=== PATIENT | female | born 1965 | race Caucasian/White ===

== ENCOUNTER 2023-04-04 14:17 | Emergency (ER) | payer MEDICARE, OTHER, SELFPAY ==
[2023-04-04] VITALS (30 sets, daily range): BP systolic 73–166; BP diastolic 36–81; PULSE 60–127; RESP 13–29; O2SAT 86–98; BMI 28.3
--- NOTE | 2023-04-04 14:20 | ECG_ITS ---
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
--- NOTE | 2023-04-04 14:43 | XR_ITS ---
The [address] [address] Patient Name: FRANCISCA GRECO MRN: [id number] date: 1965 Sex: F Assigned Patient Location: ER Current Patient Location: ER Accession/Order Number: [id number] Exam Date: 04/04/2023 15:10 Report Date: 04/04/2023 16:15 At the request of: TIFFANIE OVERTON Procedure: XR chest 1V EXAMINATION: XR chest 1V, , 04/04/2023 3:10 PM EST INDICATION: cp HISTORY: Ordering Provider Reason for Exam: cp Technologist Note: Additional: COMPARISON: None. TECHNIQUE: Chest x-ray: One view. FINDINGS: No pneumothorax, pleural effusion or focal airspace consolidation. Enlarged cardiac silhouette is seen. Cardiac pacemaker is seen in place. Bony thorax is unremarkable. XR/XR chest 1V IMPRESSION: Enlarged cardiac silhouette is seen. Cardiac pacemaker is seen in place. Electronically authenticated by: SANA BLOOD Date: 04/04/2023 16:15
[2023-04-04 14:53] LABS: PCO2 VBG 32.4 mmHg (40.0-52.0); pH VBG 7.496 (7.330-7.430)
[2023-04-04 14:54] LABS: Basophils Absolute Auto 0.1 10^3/uL (0.0-0.1); Basophils Percent Auto 0.4 % (0.2-2.0); Eosinophils Absolute Auto 0.1 10^3/uL (0.0-0.7); Eosinophils Percent Auto 0.3 % (0.9-7.0); Hematocrit 36.1 % (36.0-48.0); Hemoglobin 12.2 g/dL (12.0-16.0); Immature Granulocytes Pct Auto 0.7 % (0.0-0.5); Lymphocytes Absolute Auto 1.7 10^3/uL (1.2-3.8); Lymphocytes Percent Auto 11.4 % (20.5-60.0); Mean Corpuscular HGB Conc 33.8 g/dL (29.9-35.2); Mean Corpuscular Hemoglobin 30.8 pg (26.7-34.0); Mean Corpuscular Volume 91.2 fL (81.0-99.0); Mean Platelet Volume 11.9 fL (9.5-13.5); Monocytes Absolute Auto 1.1 10^3/uL (0.3-0.8); Monocytes Percent Auto 7.7 % (1.7-12.0); Neutrophils Absolute Auto 11.7 10^3/uL (1.4-6.5); Neutrophils Percent Auto 79.5 % (43.0-75.0); Platelet Count 255 10^3/uL (150-450); Red Blood Count 3.96 10^6/uL (4.20-5.40); Red Cell Distribution Width 16.5 % (11.0-15.0); White Blood Count 14.7 10^3/uL (4.0-11.0)
[2023-04-04] MEDS: 0.9 % SODIUM CHLORIDE 1,000 ML 100 ML IV (15:06)
[2023-04-04 15:18] LABS: Albumin Globulin Ratio 1.3; Albumin Level 3.9 g/dL (3.4-5.0); Alkaline Phosphatase 244 U/L (46-116); Anion Gap 18.6; Aspartate Amino Transferase 249 U/L (15-37); BUN Creatinine Ratio 25.5; Bilirubin Total 4.7 mg/dL (0.2-1.0); Calcium 8.6 mg/dL (8.5-10.1); Carbon Dioxide 23.8 mmol/L (21.0-32.0); Chloride 92 mmol/L (98-107); Estimated GFR (African America >60 (>=60); Estimated GFR (Non-African Ame 51 (>=60); Glucose 130 mg/dL (74-106); Magnesium 1.7 mg/dL (1.8-2.4); Potassium 3.4 mmol/L (3.5-5.1); Sodium 131 mmol/L (136-145); Total Protein 6.9 g/dL (6.4-8.2)
[2023-04-04 15:22] LABS: Alanine Aminotransferase 674 U/L (14-59); Lactate/Lactic Acid 2.8 mmol/L (0.4-2.0); Troponin I High Sensitivity 244.2 pg/mL (4.0-51.3)
--- NOTE | 2023-04-04 15:43 | ED_ITS ---
HPI - General Adult General Chief complaint: Chest Pain Stated complaint: SHORTNESS OF BREATH Time Seen by Provider: 04/04/23 14:42 Source: patient Mode of arrival: ambulance Limitations: no limitations History of Present Illness HPI narrative: Patient is a 57-year-old female who is presenting to the Emergency Room with multiple complaints. Patient is complaining of Fullness to her bilateral upper quadrant, pressure, pain. Patient has a significant medical history. Patient in 1998 had a pacemaker/to [facility]. Patient had a history of cardiomyopathy. Patient was just admitted to [facility] last week and was discharged this past Wednesday on March 28. Patient went home, was still having shortness of breath, was not feeling well Wednesday evening. Patient was sent home from the Emergency Room last Wednesday evening as well, patient said that they told her that she had anxiety and patient was discharged. Patient's been having mild chest tightness throughout the week, she has a history of atrial fibrillation. She has a history of cardiomyopathy. Patient looks jaundiced and has scleral icterus, patient's mother is at bedside. Patient says that she's been having mild jaundice and yellow coloration to skin and eyes throughout the week. Patient has no history of liver failure. Patient has no history of hepatitis B, C, cirrhosis, no liver history. Patient has no history of ascites or abdominal swelling. Patient does have mild swelling to her lower extremities. Patient has no fever or chills. No shortness of breath. No other acute complaints. Patient looks Jaundice, sick, not well and uncomfortable. Related Data Home Medications Medication Instructions Recorded Confirmed apixaban 5 mg tablet (Eliquis) 5 mg PO BID 04/04/23 04/04/23 atorvastatin 80 mg tablet 80 mg PO QPM 04/04/23 04/04/23 cholecalciferol (vitamin D3) 50 50 mcg PO DAILY 04/04/23 04/04/23 mcg (2,000 unit) capsule dofetilide 500 mcg capsule 500 mcg PO BID 04/04/23 04/04/23 lisinopril 5 mg tablet 5 mg PO DAILY 04/04/23 04/04/23 metoprolol succinate 25 mg 25 mg PO DAILY 04/04/23 04/04/23 tablet,extended release 24 hr omeprazole 40 mg capsule,delayed 40 mg PO DAILY 11/26/23 11/26/23 release spironolactone 25 mg tablet 12.5 mg PO DAILY 04/04/23 04/04/23 Allergies Allergy/AdvReac Type Severity Reaction Status Date / Time No Known Drug Allergies Allergy Verified 04/04/23 14:22 Review of Systems ROS Narrative All systems are negative except as noted/marked. All systems reviewed and otherwise negative. [facility] Social History Smoking status: Former smoker Exam Narrative Exam Narrative: Nurses note and vital signs reviewed and patient is not hypoxic. General: The patient appears My distress secondary to pain, discomfort to bilateral upper quadrant. Patient is resting uncomfortably on cart. Patient is not toxic, lethargic, or listless. Patient looks sick, not toxic. Patient is jaundiced. Skin: Warm, dry, pt has jaundice noted. There is no rash noted. No petechiae, purpura. Head: Normocephalic, atraumatic Eye: Normal conjunctiva, no drainage, EOMI. PERRL Ears, Nose, Mouth, and Throat: oral mucosa is moist. Nares patent. Mouth without vesicles. Cardiovascular: Regular Rate and Rhythm, no murmur, gallop, rub Respiratory: Patient is in no distress, no accessory muscle use, lungs are clear to auscultation, no wheezing, rales or rhonchi Back: non-tender, no CVA tenderness bilaterally to percussion. No CT LS midline pain GI: soft, Patient has moderate tenderness to palpation to the right and left upper quadrant, mild epigastric tenderness to palpation. No right or left lower quadrant tenderness to palpation, no masses appreciated. mod guarding, no Peritoneal signs or rigidity noted. No flank pain bilateral, No distention, . Abdomen is soft Musculoskeletal: Patient has full range of motion of all of the extremities, no motor, sensory, or focal neurological deficits Neurological: A&O x3, normal speech Psychiatric: Cooperative Constitutional Vital Signs, click to edit/add: Last Vital Signs Pulse 66 04/04/23 17:31 Resp 14 04/04/23 17:31 BP 83/49 L 04/04/23 17:31 Pulse Ox 96 04/04/23 17:31 O2 Del Method Nasal Cannula 04/04/23 17:10 O2 Flow Rate 2 04/04/23 17:10 Course Vital Signs Vital signs: Vital Signs Pulse Rate 84 04/04/23 14:21 Respiratory Rate 20 04/04/23 14:21 Pulse Oximetry 97 04/04/23 14:21 Pulse Rate 66 04/04/23 17:31 Respiratory Rate 14 04/04/23 17:31 Blood Pressure 83/49 L 04/04/23 17:31 Pulse Oximetry 96 04/04/23 17:31 Oxygen Delivery Method Nasal Cannula 04/04/23 17:10 Oxygen Delivery Flow Rate 2 04/04/23 17:10 Medical Decision Making MDM Narrative Medical decision making narrative: The [place] [id number] XRay Report Signed Patient: FRANCISCA GRECO MR#: [id number] : 1965 Acct:[id number] Age/Sex: 57 / F ADM Date: 04/04/23 Loc: ER Attending Dr: Ordering Physician: Tiffanie Chavez Date of Service: 04/04/23 Procedure(s): XR chest 1V Accession Number(s): [id number] cc: Gage Burden M.D.; Tiffanie Chavez~ The [address] [address] Patient Name: FRANCISCA GRECO MRN: [id number] date: 1965 Sex: F Assigned Patient Location: ER Current Patient Location: ER Accession/Order Number: [id number] Exam Date: 04/04/2023 15:10 Report Date: 04/04/2023 16:15 At the request of: TIFFANIE CHAVEZ Procedure: XR chest 1V EXAMINATION: XR chest 1V, , 04/04/2023 3:10 PM EST INDICATION: cp HISTORY: Ordering Provider Reason for Exam: cp Technologist Note: Additional: COMPARISON: None. TECHNIQUE: Chest x-ray: One view. FINDINGS: No pneumothorax, pleural effusion or focal airspace consolidation. Enlarged cardiac silhouette is seen. Cardiac pacemaker is seen in place. Bony thorax is unremarkable. XR/XR chest 1V IMPRESSION: Enlarged cardiac silhouette is seen. Cardiac pacemaker is seen in place. Patient labwork shows white blood cell count of 14, pH of a venous blood gas shows 7.49, sodium 131, potassium 3.4. Patient chloride is 92. Patient's lactic acid was 2.2, repeat was 2.2, just slightly elevated. Patient initial troponin was 244, 2nd troponin is 211. Patient says that she chronically has elevated troponin along with chronically elevated be naturally peptide. 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 Patient has a history of atrial fibrillation, cardiomyopathy, she has a pacemaker and a fibrillator. Patient has been hypotensive in the Emergency Room, 2 IVs have been established, blood pressure has improved with IV fluids. Patient was given Zosyn prophylactically. Patient was given 1 mg of Dilaudid that was part of the reason why patient blood pressure has dropped as well. Patient had a funny feeling after Dilaudid. Patient was asking for more pain medication at transfer, she is given one dose of IV Toradol. Patient does not have a surgical abdomen at disposition. Patient's blood pressure has improved. Patient was here a lengthy amount of time in the Emergency Room secondary to Emergency Room Valium and critical patients. Blameless apologies were given. Mother has been at bedside, patient agrees to go back to [facility] because her chemical plant worker and specialists other. Patient has no history of jaundice elevated liver function tests in the past Critical care time 45 minutes exclusive from separate billable procedures that were performed. The following was considered in the determination of critical care but not limited to the level of medical decision making, intensive cardiac and/or respiratory monitoring, frequent vital sign monitoring, evaluation of laboratory studies, evaluation of radiographic studies, oxygen monitoring, and constant monitoring and speaking to family at bedside Lab Data Lab results reviewed: Yes I reviewed the patient's lab results Labs: Lab Results 04/04/23 04/04/23 Range/Units 14:36 15:06 WBC 14.7 H (4.0-11.0) 10^3/uL RBC 3.96 L (4.20-5.40) 10^6/uL Hgb 12.2 (12.0-16.0) g/dL Hct 36.1 (36.0-48.0) % MCV 91.2 (81.0-99.0) fL MCH 30.8 (26.7-34.0) pg MCHC 33.8 (29.9-35.2) g/dL RDW 16.5 H (11.0-15.0) % Plt Count 255 (150-450) 10^3/uL MPV 11.9 (9.5-13.5) fL Neut % (Auto) 79.5 H (43.0-75.0) % Lymph % (Auto) 11.4 L (20.5-60.0) % [place] % (Auto) 7.7 (1.7-12.0) % Eos % (Auto) 0.3 L (0.9-7.0) % Baso % (Auto) 0.4 (0.2-2.0) % Neut # (Auto) 11.7 H (1.4-6.5) 10^3/uL Lymph # (Auto) 1.7 (1.2-3.8) 10^3/uL [place] # (Auto) 1.1 H (0.3-0.8) 10^3/uL Eos # (Auto) 0.1 (0.0-0.7) 10^3/uL Baso # (Auto) 0.1 (0.0-0.1) 10^3/uL Abs Immat Gran (auto) 0.10 H (0.00-0.03) 10^3/uL Imm/Tot Granulo (auto) 0.7 H (0.0-0.5) % VBG pH 7.496 H (7.330-7.430) VBG pCO2 32.4 L (40.0-52.0) mmHg Sodium 131 L (136-145) mmol/L Potassium 3.4 L (3.5-5.1) mmol/L Chloride 92 L (98-107) mmol/L Carbon Dioxide 23.8 (21.0-32.0) mmol/L Anion Gap 18.6 BUN 28.0 H (7.0-18.0) mg/dL Creatinine 1.10 H (0.55-1.02) mg/dL Est GFR ( Amer) >60 (>=60) Est GFR (Non-Af Amer) 51 L (>=60) BUN/Creatinine Ratio 25.5 Glucose 130 H (74-106) mg/dL Lactate 2.8 H* 2.2 H* (0.4-2.0) mmol/L Calcium 8.6 (8.5-10.1) mg/dL Magnesium 1.7 L (1.8-2.4) mg/dL Total Bilirubin 4.7 H (0.2-1.0) mg/dL AST 249 H (15-37) U/L ALT 674 H* (14-59) U/L Alkaline Phosphatase 244 H (46-116) U/L Troponin I High Sens 244.2 H* 211.5 H* (4.0-51.3) pg/mL NT-Pro-B Natriuret Pep 52739.0 H* (<=900.0) pg/mL Total Protein 6.9 (6.4-8.2) g/dL Albumin 3.9 (3.4-5.0) g/dL Globulin 3.0 g/dL Albumin/Globulin Ratio 1.3 Lipase 16.0 (16.0-77.0) U/L ECG Data Attestation: I personally reviewed and interpreted this ECG as follows: (EKG interpretation. Irregular irregular at 85 beats a minute. Left axis deviation. Artifact noted. Paced rhythm. Old atrial fibrillation. QTC of 446. Right bundle- branch block noted.) Discharge Plan Discharge Chief Complaint: Chest Pain Clinical Impression: Elevated LFTs, Jaundice, Chest pain, Elevated troponin, Bilateral upper abdominal pain, Dehydration Patient Disposition: [facility] Time of Disposition Decision: 17:42 [facility]: [facility]ious
[2023-04-04] MEDS: HYDROMORPHONE HCL 1 MG/ML CARTRIDGE IV (15:51)
[2023-04-04] MEDS: ONDANSETRON PF 4 MG/2 ML VIAL IV ×2 (15:51→17:32)
[2023-04-04] MEDS: PIPERACILLIN SODIUM/TAZOBACTAM 3.375 GM in 0.9 % SODIUM CHLORIDE 50 ML IV (17:34)
[2023-04-04] MEDS: 0.9 % SODIUM CHLORIDE 1,000 ML 1000 ML IV (17:37)
[2023-04-04 17:42] LABS: Lactate/Lactic Acid 2.2 mmol/L (0.4-2.0); Troponin I High Sensitivity 211.5 pg/mL (4.0-51.3)
[2023-04-04] MEDS: KETOROLAC TROMETHAMINE 30 MG/ML VIAL 15 MG IVP (17:50)
== END 2023-04-04 17:59 | disposition short-term general hospital (02) ==
PROVIDERS: Emergency Provider Emergency Medicine; PCP Family Medicine
DX: R07.9 Chest pain, unspecified (principal); E86.0 Dehydration; R79.89 Other specified abnormal findings of blood chemistry; R10.12 Left upper quadrant pain; R10.11 Right upper quadrant pain; I48.91 Unspecified atrial fibrillation; I42.9 Cardiomyopathy, unspecified; Z79.01 Long term (current) use of anticoagulants; Z79.899 Other long term (current) drug therapy; Z95.810 Presence of automatic (implantable) cardiac defibrillator; Z87.891 Personal history of nicotine dependence
CPT/HCPCS: 36415; 71045; 80053; 82800; 83605; 83690; 83735; 83880; 84484; 85025; 93005; 96361; 96374; 96375; 96376; 99285; J1170